=== PATIENT | male | born 1995 | race African-American/Black ===

== ENCOUNTER 2020-12-27 07:35 | Emergency (ER) | payer MEDICAID, OTHER ==
[~2020-12-27] VITALS: Ht 180.3 cm; Wt 75.3 kg
[2020-12-27] MEDS ORDERED: cefTRIAXone SOD 1,000 MG VL IM ONE (08:15)
[2020-12-27] MEDS ORDERED: LIDOCAINE 1% HCL (LOCAL ANESTH.) INJ 20ML MDV ONE (08:15)
[2020-12-27 08:49] VITALS: BP 124/90
== END 2020-12-27 09:19 | disposition home or self-care (01) ==
LOC: ER 07:35
DX: J02.9 Acute pharyngitis, unspecified (principal)
CPT/HCPCS: 96372; 99283; J0696; J2001